=== PATIENT | male | born 1980 | race Caucasian/White ===

== ENCOUNTER 2024-08-20 13:14 | Emergency (ER) | payer OTHER ==
[~2024-08-20] VITALS: Ht 172.7 cm; Wt 88.6 kg
[2024-08-20] MEDS ORDERED: LEVOTAB10 PO (13:30)
[2024-08-20] MEDS ORDERED: ALLO100T PO (13:30)
[2024-08-20] MEDS ORDERED: FLUT50SP33 (13:30)
[2024-08-20] MEDS ORDERED: ATOR1TAB19 PO (13:30)
[2024-08-20] MEDS ORDERED: AZEL1SPR3 NARES (13:30)
[2024-08-20] MEDS: IBUPROFEN 800 MG TAB PO ONE (14:50)
[2024-08-20] MEDS ORDERED: IBUP1TAB6 PO (14:56)
[2024-08-20 15:16] VITALS: BP 163/98; TEMP 98; O2SAT 98
== END 2024-08-20 15:28 | disposition home or self-care (01) ==
LOC: M ED 13:14 → EDBD 13:14 → M ED 15:28
DX: S93.412A Sprain of calcaneofibular ligament of left ankle, initial encounter (principal); S93.422A Sprain of deltoid ligament of left ankle, initial encounter; X50.1XXA Overexertion from prolonged static or awkward postures, initial encounter; Y92.410 Unspecified street and highway as the place of occurrence of the external cause; Y93.9 Activity, unspecified; Y99.9 Unspecified external cause status; E78.5 Hyperlipidemia, unspecified; M10.9 Gout, unspecified